=== PATIENT | male | born 1965 | race Caucasian/White ===

== ENCOUNTER 2020-04-27 | Outpatient (REF) | payer OTHER, SELFPAY | END 2020-04-27 00:01 | disposition home or self-care (01) | LOC: HO.LAB | PROVIDERS: PCP Internal Medicine; Visit Provider Internal Medicine | DX: Z11.59 Encounter for screening for other viral diseases (principal) | CPT/HCPCS: 87635 ==

== ENCOUNTER 2020-04-28 07:55 | Outpatient (REF) | payer OTHER, SELFPAY ==
[2020-04-28 08:44] LABS: COVID-19 Test Negative (Negative)
== END 2020-04-28 07:56 | disposition home or self-care (01) ==
LOC: HO.LAB 07:55
PROVIDERS: Visit Provider Internal Medicine
DX: Z20.828 Contact with and (suspected) exposure to other viral communicable diseases (principal)
CPT/HCPCS: 87635